=== PATIENT | female | born 1935 | race Caucasian/White ===

== ENCOUNTER 2017-01-10 10:45 | Day surgery (SDC) | payer MEDICARE, OTHER, MEDICAID ==
[2017-01-09 15:32] VITALS: BMI 29.2
[2017-01-10 12:16] LABS: #Basophils 0.1 thou/uL (0.0-0.2); #Eosinphils 0.3 thou/uL (0.0-0.7); #Lymphocytes 1.8 thou/uL (1.20-3.40); #Monocytes 0.5 thou/uL (0.11-0.59); #Neutrophils 3.9 thou/uL (1.40-6.50); %Basophils 1.1 % (0.0-1.0); %Eosinophils 4.7 % (0.0-10.0); %Lymphocytes 27.5 % (21.0-51.0); %Monocytes 7.9 % (0.0-10.0); Hematocrit 34.7 % (36.0-47.0); Mean Platelet Volume 7.8 fL (7.4-10.4); Red Blood Cell (RBC) Count 3.62 mill/uL (4.20-5.40); White Blood Cell (WBC) Count 6.6 thou/uL (4.8-10.8)
[2017-01-10 12:36] LABS: Anion Gap 14 mmol/L (10-20); BUN (Urea Nitrogen) 24 mg/dL (9.8-20.1); Calc. Creatinine Clearance 14 mL/min (70-130); Calcium 10.2 mg/dL (7.8-10.44); Carbon Dioxide 20 mmol/L (23-31); Chloride 111 mmol/L (98-107); Estimated GFR-MDRD 11
[2017-01-10] MEDS ORDERED: Lidocaine 1% w/Epinephrine 1:200K 30 ML VIAL ONE (13:29)
[2017-01-10] MEDS ORDERED: Fentanyl 100 MCG/2 ML VIAL ONE ×3 (13:41→15:25)
[2017-01-10] MEDS ORDERED: Promethazine HCl 25 MG/ML VIAL ONE (13:41)
[2017-01-10] MEDS ORDERED: Lidocaine 1% PF 5 ML VIAL ONE (14:30)
[2017-01-10] MEDS ORDERED: Bupivacaine/Epinephrine 0.25% 30 ML VIAL ONE (14:34)
--- NOTE | 2017-02-06 18:47 | OP ---
PREOPERATIVE DIAGNOSIS: Oral squamous lesion. POSTOPERATIVE DIAGNOSIS: Oral squamous lesion, squamous metaplasia of the hard callus. PROCEDURE PERFORMED: Microsuspension laryngoscopy with biopsy of oral lesion. PROCEDURE IN DETAIL: After consent was obtained, the patient was identified, brought to the operati ng room and placed on the table in supine position. General endotracheal anesthesia was obtained. The patient was positioned for surgery. The patient with systematic evaluation of oropharynx, no le tanmay was identified other than that of the hard palate which seemed to extend up in the anterior par t of the hard palate to the gum region and floor of the nose. There seemed to be abscess type cavit y from which biopsies were obtained. The bone also seemed to be involved. This involved predominan tly the anterior third of the hard palate and involved the ridgeline of the gum. The specimens and cultures were obtained. The patient was awakened, extubated, and taken to the recovery room and rem ained in stable condition prior to discharge home.
== END 2017-01-10 16:40 | disposition home or self-care (01) ==
LOC: SDC 10:45
PROVIDERS: ATTEND Specialist
PROC: 0CB Mouth and Throat, Excision (ICD-10-PCS; principal; 2017-01-10)
DX: K13.79 Other lesions of oral mucosa (principal); E78.5 Hyperlipidemia, unspecified; J44.9 Chronic obstructive pulmonary disease, unspecified; I13.0 Hypertensive heart and chronic kidney disease with heart failure and stage 1 through stage 4 chronic kidney disease, or unspecified chronic kidney disease; N18.9 Chronic kidney disease, unspecified; I50.9 Heart failure, unspecified; F32.9 Major depressive disorder, single episode, unspecified; N25.81 Secondary hyperparathyroidism of renal origin; K21.9 Gastro-esophageal reflux disease without esophagitis; R31.9 Hematuria, unspecified; M19.90 Unspecified osteoarthritis, unspecified site; M48.00 Spinal stenosis, site unspecified; E66.9 Obesity, unspecified; Z68.29 Body mass index [BMI] 29.0-29.9, adult; Z90.710 Acquired absence of both cervix and uterus; Z98.890 Other specified postprocedural states; Z96.653 Presence of artificial knee joint, bilateral; Z82.49 Family history of ischemic heart disease and other diseases of the circulatory system; Z79.899 Other long term (current) drug therapy
CPT/HCPCS: 80048; 85025; 87070; 87205; 88304; 88305; 96374; J2001; J2550; J3010

== ENCOUNTER 2017-02-19 12:46 | Outpatient (CLI) | payer MEDICARE, OTHER, MEDICAID ==
--- NOTE | 2017-02-19 17:55 | PET ---
NUCLEAR MEDICINE FDG PET CT: (Positron Emission Tomography) HISTORY: 86-year-old female with head/neck cancer, cancer of the hard palate. COMPARISON: None. TECHNIQUE: IV injection F-18 Fluorodeoxyglucose (FDG) dose: 10.0 mCi PET and attenuation-correction CT performed from vertex of skull to proximal thighs. FINDINGS: SUV (standard uptake value) numbers given are maximum SUV's: There is a soft tissue mass destroying the bone at the left anterior maxilla, including hard palate and alveolar ridge. This is very FDG avid, with SUV of 9.1. In the contralateral right retropharyngeal space at the C1 level, the region of the right longus Col li/longus capitus muscle appears asymmetrically mildly enlarged compared to the contralateral left s [place]. This is also very FDG avid, with SUV of 9.3. No other abnormally FDG avid lesion in the rest of the neck, chest, abdomen, or pelvis. IMPRESSION: 1. 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 2. FDG avid lesion in the right upper retropharyngeal space. 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 The other, much less likely possibility would be a second primary neoplasm. ISIDRO Hooker POS: IAN
== END 2017-02-19 12:47 | disposition home or self-care (01) ==
LOC: PET 12:46
PROVIDERS: ATTEND Radiology Radiation Oncology
DX: C05.0 Malignant neoplasm of hard palate (principal); J39.2 Other diseases of pharynx
CPT/HCPCS: 78815; A9552

== ENCOUNTER 2018-09-23 00:34 | Inpatient (IN) | payer MEDICARE, MEDICAID ==
[2018-09-23] MEDS ORDERED: Acetaminophen 325 MG TAB PO PRN (04:03)
[2018-09-23] MEDS ORDERED: Ondansetron PF 4 MG/2 ML Vial IVP PRN (04:03)
[2018-09-23] MEDS ORDERED: Ondansetron ODT 4 MG TAB PO PRN (04:03)
[2018-09-23] MEDS ORDERED: Acetaminophen 325 MG TAB ONE (04:52)
[2018-09-23] MEDS ORDERED: Ondansetron ODT 4 MG TAB ONE (04:57)
--- NOTE | 2018-09-23 06:00 | HP ---
PRIMARY CARE DOCTOR: TAM Rivera. CODE STATUS: DNR/DNI as stated by patient. TIME OF EVALUATION: 4 a.m. CHIEF COMPLAINT: Shortness of breath. HISTORY OF PRESENT ILLNESS: This is an 82-year-old female patient with past medical history of congestive heart failure, COPD, hypertension, kidney disease stage 5, has been offered hemodialysis in the past by she has refused to get it, came to the hospital after having severe gradually worsening shortness of breath with no clear triggers, no alleviating factors, associated with greenish sputum and cough. The symptoms have been present for the past couple of days. Symptoms started suddenly. REVIEW OF SYSTEMS: CONSTITUTIONAL: No fever, chills, or generalized weakness. RESPIRATORY: The patient has cough, sputum production, or shortness of breath. CARDIOVASCULAR: No chest pain or palpitation. GASTROINTESTINAL: No nausea. No vomiting, diarrhea, or abdominal pain. YARD JACKER: No dizziness, headache, or feeling lightheaded. GENITOURINARY: No burning on urination. EXTREMITIES: Bilateral leg swelling. All other systems were reviewed and negative except for the findings mentioned above. PAST MEDICAL HISTORY: As mentioned in the HPI. PAST SURGICAL HISTORY: Bilateral knee and back surgery, carpal tunnel bilateral, surgical history of hysterectomy, cataract surgery bilaterally, left rotator cuff repair. PSYCHIATRIC HISTORY1: No previous psych history. SOCIAL HISTORY: The patient is a former tobacco user. Smokes cigarettes more than 10 years ago. FAMILY HISTORY: Not significant. KNOWN ALLERGIES: No known drug allergies. REPORTED MEDICATIONS: 1. Nexium. 2. Alprazolam. 3. Tramadol. 4. Metoprolol. PHYSICAL EXAMINATION: VITAL SIGNS: On presentation; blood pressure of 150/66 with heart rate 62, respiratory rate was 16, temperature 97.8, pain was 0/10, oxygen saturation 98% on room air. GENERAL APPEARANCE: The patient is alert, oriented, not in acute distress. HEENT: Eyes, normal conjunctivae. Moist oral mucosa. Anicteric. No JVD. RESPIRATORY: Bilateral air entry is decreased, bilateral rales. The patient has wheezing, symmetric expansion. CARDIOVASCULAR: Normal rate, regular rhythm. No murmurs. No gallops. Bilateral leg edema. ABDOMEN: Soft. Normal bowel sounds. MUSCULOSKELETAL: Baseline range of motion and strength. No tenderness. SKIN: Warm and intact. No pallor. No rash. No redness. Peripheral pulses are present. Capillary refill seems to be intact. NEUROLOGIC: No evidence of any new focal weakness. Baseline speech. Cranial nerves seems to be intact. PSYCH: The patient is in good mood. No anxiety. Optimal judgment. IMAGING DATA: EKG was reviewed. The patient has normal sinus rhythm with sinus arrhythmia, ventricular rate 60, PA 134, QRS 82, QT corrected 462. Chest x-ray was reviewed. The patient has small bilateral pleural effusion due to pulmonary edema. LABORATORY DATA: Labs were reviewed. The patient's white count 6.4, hemoglobin 8.2, platelet count 285. Chemistry; sodium 143, potassium 4.5, chloride 116, carbon dioxide 14, anion gap 18, BUN 52, creatinine 8.5, GFR 4, glucose 102, calcium 8.9 LFTs were negative. ASSESSMENT AND PLAN: The patient will be placed in the hospital with following medical problems; 1. Acute exacerbation of congestive heart failure. Place the patient on diuresis. We will reconcile home medications. 2. History of chronic obstructive pulmonary disease, possible chronic obstructive pulmonary disease exacerbation. Given increase in greenish sputum production, we will place the patient on antibiotics and nebulizers. Job ID: [id number]
[2018-09-23 07:45] LABS: Troponin I 0.056 ng/mL (< 0.028)
[2018-09-23] MEDS ORDERED: Levofloxacin 500 mg/D5W 100 ml Premix Bag ONE (08:13)
[2018-09-23 11:20] VITALS: BMI 24.7
[2018-09-23] MEDS ORDERED: hydrALAZINE 20 MG/ML VIAL ONE (12:03)
[2018-09-23] MEDS: hydrALAZINE 20 MG/ML VIAL SLOW IVP PRN (12:14)
[2018-09-23] MEDS: Heparin 5,000 UNITS/ML VIAL SC SCH ×3 (12:14→21:41)
[2018-09-23] MEDS ORDERED: Metoprolol Tartrate 50 MG TAB PO SCH (12:15)
--- NOTE | 2018-09-23 12:38 | CON ---
DATE OF CONSULTATION: 09/23/2018 HISTORY OF PRESENT ILLNESS: Ms. 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 She was found to be in CHF. Her last creatinine back in 2014 was noted at 3.34 with GFR 14 mL/minute. Over time, this has progressed. I had a discussion with the last visit about dialysis. The patient is uncertain if she wants to proceed with dialysis. I will get in touch with the daughter. We are now following her up for chronic renal failure. Her GFR is less than 10 mL/minute. REVIEW OF SYSTEMS: Positive for shortness of breath. No chest pain. No syncopal episode. Appetite fair. Energy level is fair. No headache. No diplopia. No sore throat. No syncopal episode. No gross hematuria. No dysuria. No urinary frequency. Positive for leg swelling. 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 She has a history of depression, chronic pain, GERD, anxiety. History of CHF and COPD. PAST SURGICAL HISTORY: Status post bilateral knee and back surgery, status post cataract surgery, status post left rotator cuff repair, status post hysterectomy, status post bilateral carpal tunnel surgery. SOCIAL HISTORY: The patient used to be smoking tobacco as well as cigarettes. She lives in [place], lives with her daughter. Sedentary lifestyle. No IV drug abuse. Currently, no alcohol. FAMILY HISTORY: No family history of ESRD. ALLERGIES: NONE. TRAUMA: None. IMMUNIZATION: Up-to-date. HOSPITALIZATIONS: Please see past medical history. PHYSICAL EXAMINATION: VITAL SIGNS: Blood pressure 150/66, heart rate 62, respiratory rate 16, temperature 97.8, and pulse ox 98% on room air. GENERAL: She is awake, alert, comfortable, not in overt distress. SKIN: Adequate turgor. HEENT: Slightly pale conjunctivae. Anicteric sclerae. NECK: No neck mass. No carotid bruits. No JVD. CHEST: No deformities. LUNGS: Decreased breath sounds. HEART: Normal sinus rhythm. No murmur, no gallops, no rubs. ABDOMEN: Globular, soft, nontender. No masses. EXTREMITIES: Positive for edema. NEUROLOGICAL: Awake and oriented to 3 spheres. Moving all extremities. No tremors. No asterixis. LABORATORY DATA: Laboratories of September 22, 2018, white count 6.4, hemoglobin 8.2. Sodium 143, potassium 4.5, chloride 116, carbon dioxide 14, BUN 52, creatinine 8.5, GFR 4 mL/minute, glucose 102, calcium 8.9. IMAGING STUDIES: Chest x-ray showed CHF. MEDICATIONS: The patient is on, 1. Tramadol 50 mg p.o. b.i.d. 2. Metoprolol tartrate 50 mg b.i.d. 3. Lorazepam 0.5 mg p.o. b.i.d. 4. Atrovent oral inhaler p.r.n. 5. Nexium 40 mg q.a.m. 6. Clindamycin 300 mg q.8. 7. DuoNeb q.6 hours. 8. Xanax 0.5 mg p.o. t.i.d. Current medications include Levaquin 500 mg q.24 hours, heparin 5000 units subcu t.i.d. ASSESSMENT/PLAN: 1. 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 Renal function in the last 4 years has worsened from a GFR of 14 to a most recent GFR of 4 mL/minute. I did discuss with the patient about dialysis. She seems unsure of what to do. I left a message for her daughter to call me. Again, the option of dialysis will be given today, the patient can choose not to dialyze and we can consult palliative care with her. If she decides to do dialysis, we will initiate dialysis at this hospital. 2. Congestive heart failure. Agree with IV diuresis. Optimize neb treatment with this patient. 3. Borderline. 4. Anemia. Start Epogen and iron supplementation. Thank you for the consult. We will continue to follow. Job ID: [id number]
--- NOTE | 2018-09-23 13:19 | PDOC.PN ---
- Subjective Encounter Start Date: 09/23/18 Encounter Start Time: 13:00 Subjective: f/u for volume overload likely mediated by ESRD. Pt does not want -: to start HD and is considering hospice. - Objective Resuscitation Status - Order Detail: 09/23/18 04:03 Resuscitation Status Routine Resuscitation Status: DNAR: NO Resuscitation Discussed with: as stated by pt MAR Reviewed: Yes Vital Signs & Weight: Vital Signs (12 hours) Temp Pulse Resp BP BP Pulse Ox 09/23/18 12:27 63 09/23/18 12:14 63 173/74 H 09/23/18 10:52 63 20 09/23/18 09:00 97.0 F L 61 24 H 167/80 H 100 09/23/18 07:41 78 16 98 Weight Weight 149 lb Additional Labs: Laboratory Tests 09/22/18 09/22/18 09/22/18 22:30 22:30 22:30 WBC 6.4 Hgb 8.2 L Hct 26.4 L Plt Count 185 Sodium 143 Potassium 4.5 Chloride 116 H Carbon Dioxide 14 L BUN 52 H Creatinine 8.58 H Estimated GFR (MDRD) 4 Glucose 102 Calcium 8.9 B-Natriuretic Peptide 4409.7 H Radiology Reviewed by me: Yes (PCXR - bilat small pleural effusions) EKG Reviewed by me: Yes (Tele - sinus bradycardia) Phys Exam - Physical Examination Constitutional: NAD HEENT: PERRLA, sclera anicteric, oral pharynx no lesions Neck: no nodes, no JVD, supple, full ROM diminished in bases Respiratory: no wheezing S1, S2 Cardiovascular: RRR, no significant murmur, no rub, gallop Gastrointestinal: soft, non-tender, no distention, positive bowel sounds Musculoskeletal: pulses present, edema present Neurological: normal sensation, moves all 4 limbs Psychiatric: A&O x 3 Skin: normal turgor, cap refill <2 seconds Dx/Plan (1) Pulmonary edema Code(s): J81.1 - CHRONIC PULMONARY EDEMA Status: Acute Comment: Likely due to ESRD with volume overload, no current plans to pursue HD per patient and family, supportive mgmt (2) ESRD (end stage renal disease) Code(s): N18.6 - END STAGE RENAL DISEASE Status: Chronic Comment: No plans for HD per pt and family request, Hospice evaluation pending (3) Acute and chronic respiratory failure with hypoxia Code(s): J96.21 - ACUTE AND CHRONIC RESPIRATORY FAILURE WITH HYPOXIA Status: Acute Comment: Continue O2 supplementation continuously (4) HTN (hypertension) Code(s): I10 - ESSENTIAL (PRIMARY) HYPERTENSION Status: Chronic Qualifiers: Hypertension type: renovascular hypertension Qualified Code(s): I15.0 - Renovascular hypertension Comment: Resume home Metoprolol, add Hydralazine IV PRN (5) Anemia in CKD (chronic kidney disease) Code(s): N18.9 - CHRONIC KIDNEY DISEASE, UNSPECIFIED; D63.1 - ANEMIA IN CHRONIC KIDNEY DISEASE Status: Chronic Comment: Epo and FeSO4 replacement - Plan plan discussed w/ family, social science teacher, out of bed/ambulate, DVT proph w/SCDs Continue supportive mgmt -: Resume home Metoprolol 50mg BID -: Add Hydralazine IV prn -: Hospice consult for outpt planning -: AM lab: BMP, CBC * .
[2018-09-23] MEDS ORDERED: ALPRAZolam 0.25 MG TAB PO PRN (13:24)
--- NOTE | 2018-09-23 13:31 | PDOC.EVN ---
Event Note - Event Note Event Note: ACP Note: Spoke with daughter and patient regarding current dx of ESRD and pt does not want to pursue hemodialysis and accepts this diagnosis as a terminal phase of her known kidney disease. Family agrees with not pursuing any further aggressive intervention for renal failure and would like to transition to home hospice on discharge. Will continue with supportive mgmt currently and consult hospice for coordination of outpt care. Family and pt verbalize understanding and agreement. Total Time: 15min
--- NOTE | 2018-09-23 17:02 | EKG ---
Test Reason : Blood Pressure : / mmHG Vent. Rate : 069 BPM Atrial Rate : 069 BPM P-R Int : 128 ms QRS Dur : 086 ms QT Int : 396 ms P-R-T Axes : 008 013 100 degrees QTc Int : 424 ms Normal sinus rhythm Nonspecific ST and T wave abnormality Abnormal ECG When compared with ECG of 23-SEP-2018 01:10, (Unconfirmed) Nonspecific T wave abnormality, worse in Lateral leads Confirmed by DR. Brenda RODAS ([id number]) on 09/23/2018 5:02:08 PM Referred By: ROBIN Confirmed By:DR. Brenda RODAS
[2018-09-23] MEDS ORDERED: Prevnar 13-Val Conj/PF 0.5 ML SYRINGE IM ONE (21:00)
[2018-09-23] MEDS: Metoprolol Tartrate 50 MG TAB PO SCH (21:42)
[2018-09-23] MEDS: traMADol HCl 50 MG TAB PO PRN (21:42)
[2018-09-23] MEDS: ALPRAZolam 0.25 MG TAB PO SCH (21:44)
[2018-09-24] MEDS: hydrALAZINE 20 MG/ML VIAL SLOW IVP PRN (00:17)
[2018-09-24 09:20] LABS: #Basophils 0.1 thou/uL (0.0-0.2); #Eosinphils 0.3 thou/uL (0.0-0.7); #Lymphocytes 0.7 thou/uL (1.20-3.40); #Monocytes 0.4 thou/uL (0.11-0.59); #Neutrophils 4.2 thou/uL (1.40-6.50); %Basophils 1.2 % (0.0-1.0); %Eosinophils 4.8 % (0.0-10.0); %Lymphocytes 12.2 % (21.0-51.0); %Monocytes 7.6 % (0.0-10.0); %Neutrophils 74.3 % (42.0-75.0); Hemoglobin 8.4 g/dL (12.0-16.0); Mean Corpuscular HGB CONC 32.5 g/dL (32.0-36.0); Mean Corpuscular Hemoglobin 31.4 pg (27.0-31.0); Mean Corpuscular Volume 96.7 fL (78.0-98.0); Mean Platelet Volume 8.3 fL (7.4-10.4); Platelet Count 182 thou/uL (130-400); RBC Distribution Width 13.1 % (11.5-14.5); Red Blood Cell (RBC) Count 2.66 mill/uL (4.20-5.40); White Blood Cell (WBC) Count 5.6 thou/uL (4.8-10.8)
[2018-09-24 09:31] LABS: Anion Gap 15 mmol/L (10-20); BUN (Urea Nitrogen) 51 mg/dL (9.8-20.1); Calc. Creatinine Clearance 6 mL/min (70-130); Calcium 9.1 mg/dL (7.8-10.44); Carbon Dioxide 14 mmol/L (23-31); Chloride 115 mmol/L (98-107); Estimated GFR-MDRD 5; Glucose 91 mg/dL (83-110); Sodium 140 mmol/L (136-145)
[2018-09-24] MEDS: Heparin 5,000 UNITS/ML VIAL SC SCH ×3 (09:44→21:31)
[2018-09-24] MEDS: ALPRAZolam 0.25 MG TAB PO SCH ×2 (09:45→21:05)
[2018-09-24] MEDS: Metoprolol Tartrate 50 MG TAB PO SCH ×2 (09:49→21:25)
--- NOTE | 2018-09-24 16:36 | PDOC.PN ---
- Subjective Encounter Start Date: 09/24/18 Encounter Start Time: 16:20 Subjective: f/u for ESRD but pt not wanting to start HD and will transition to hospice -: at home. States some difficulty sleeping last pm. - Objective Resuscitation Status - Order Detail: 09/23/18 04:03 Resuscitation Status Routine Resuscitation Status: DNAR: NO Resuscitation Discussed with: as stated by pt MAR Reviewed: Yes Vital Signs & Weight: Vital Signs (12 hours) Temp Pulse Resp BP Pulse Ox 09/24/18 13:58 75 18 93 L 09/24/18 11:07 97.5 F L 65 22 H 149/74 H 95 09/24/18 10:16 70 18 94 L 09/24/18 09:45 97 09/24/18 07:39 97.7 F 81 20 108/65 97 09/24/18 06:36 65 20 99 Weight Weight 149 lb Most Recent Monitor Data Heart Rate from ECG 77 NIBP 134/72 NIBP BP-Mean 92 Respiration from ECG 16 SpO2 100 I&O: 09/23/18 09/24/18 09/25/18 06:59 06:59 06:59 Intake Total 100 Balance 100 Result Diagrams: 09/24/18 08:29 09/24/18 08:29 Additional Labs: Laboratory Tests 09/22/18 09/22/18 09/22/18 22:30 22:30 22:30 WBC 6.4 Hgb 8.2 L Hct 26.4 L Plt Count 185 Sodium 143 Potassium 4.5 Chloride 116 H Carbon Dioxide 14 L BUN 52 H Creatinine 8.58 H Estimated GFR (MDRD) 4 Glucose 102 Calcium 8.9 B-Natriuretic Peptide 4409.7 H Phys Exam - Physical Examination Constitutional: NAD HEENT: PERRLA, sclera anicteric, oral pharynx no lesions Neck: no nodes, no JVD, supple, full ROM diminished in bases, few rhonchi S1, S2 Cardiovascular: RRR, no significant murmur, no rub, gallop Gastrointestinal: soft, non-tender, no distention, positive bowel sounds Musculoskeletal: pulses present, edema present Neurological: normal sensation, moves all 4 limbs Psychiatric: A&O x 3 Skin: normal turgor, cap refill <2 seconds Dx/Plan (1) Pulmonary edema Code(s): J81.1 - CHRONIC PULMONARY EDEMA Status: Acute Comment: Likely due to ESRD with volume overload, no current plans to pursue HD per patient and family, supportive mgmt (2) ESRD (end stage renal disease) Code(s): N18.6 - END STAGE RENAL DISEASE Status: Chronic Comment: No plans for HD per pt and family request, Hospice evaluation in progress with plans to transition to hospice in 24h (3) Acute and chronic respiratory failure with hypoxia Code(s): J96.21 - ACUTE AND CHRONIC RESPIRATORY FAILURE WITH HYPOXIA Status: Acute Comment: Continue O2 supplementation continuously (4) HTN (hypertension) Code(s): I10 - ESSENTIAL (PRIMARY) HYPERTENSION Status: Chronic Qualifiers: Hypertension type: renovascular hypertension Qualified Code(s): I15.0 - Renovascular hypertension Comment: Resume home Metoprolol, add Hydralazine IV PRN (5) Anemia in CKD (chronic kidney disease) Code(s): N18.9 - CHRONIC KIDNEY DISEASE, UNSPECIFIED; D63.1 - ANEMIA IN CHRONIC KIDNEY DISEASE Status: Chronic Comment: Epo and FeSO4 replacement - Plan plan discussed w/ family, psychosocial rehabilitation counselor, out of bed/ambulate, DVT proph w/SCDs Stable overall -: Continue supportive mgmt -: D/C Levaquin -: Hospice evaluation in progress -: Likely home in am with hospice * .
--- NOTE | 2018-09-24 16:42 | PDOC.EVN ---
Event Note - Event Note Event Note: ACP note: Discussed further goals of care and finalization regarding decision to pursue hospice at discharge. Daughter present with pt and agrees to pursue home hospice in the next 24h. Code status remains DNAR per pt and daughter request. Total time: 10min
[2018-09-24] MEDS: traMADol HCl 50 MG TAB PO PRN (21:23)
[2018-09-25] MEDS: Metoprolol Tartrate 50 MG TAB PO SCH ×2 (08:06→20:46)
[2018-09-25] MEDS: ALPRAZolam 0.25 MG TAB PO SCH ×3 (08:06→20:46)
[2018-09-25] MEDS: Heparin 5,000 UNITS/ML VIAL SC SCH ×3 (08:07→20:46)
--- NOTE | 2018-09-25 12:27 | PDOC.PN ---
- Subjective Encounter Start Date: 09/25/18 Encounter Start Time: 12:25 Subjective: f/u for ESRD with conservative mgmt transitioning to hospice. - Objective Resuscitation Status - Order Detail: 09/23/18 04:03 Resuscitation Status Routine Resuscitation Status: DNAR: NO Resuscitation Discussed with: as stated by pt MAR Reviewed: Yes Vital Signs & Weight: Vital Signs (12 hours) Temp Pulse Resp BP Pulse Ox 09/25/18 10:35 70 16 98 09/25/18 08:00 95 09/25/18 07:19 98.1 F 72 20 167/75 H 95 09/25/18 07:02 68 16 99 Weight Weight 149 lb Most Recent Monitor Data Heart Rate from ECG 77 NIBP 134/72 NIBP BP-Mean 92 Respiration from ECG 16 SpO2 100 I&O: 09/24/18 09/25/18 09/26/18 06:59 06:59 06:59 Intake Total 100 850 Balance 100 850 Result Diagrams: 09/24/18 08:29 09/24/18 08:29 Additional Labs: Laboratory Tests 09/22/18 09/22/18 09/22/18 22:30 22:30 22:30 WBC 6.4 Hgb 8.2 L Hct 26.4 L Plt Count 185 Sodium 143 Potassium 4.5 Chloride 116 H Carbon Dioxide 14 L BUN 52 H Creatinine 8.58 H Estimated GFR (MDRD) 4 Glucose 102 Calcium 8.9 B-Natriuretic Peptide 4409.7 H Phys Exam - Physical Examination Constitutional: NAD HEENT: PERRLA, sclera anicteric, oral pharynx no lesions Neck: no nodes, no JVD, supple, full ROM diminished in bases Respiratory: no wheezing, no rales, clear to auscultation bilateral S1, S2 Cardiovascular: RRR, no rub, gallop Gastrointestinal: soft, non-tender, no distention, positive bowel sounds Musculoskeletal: pulses present, edema present Neurological: normal sensation, moves all 4 limbs Psychiatric: A&O x 3 Skin: normal turgor, cap refill <2 seconds Dx/Plan (1) Pulmonary edema Code(s): J81.1 - CHRONIC PULMONARY EDEMA Status: Acute Comment: Likely due to ESRD with volume overload, no current plans to pursue HD per patient and family, supportive mgmt (2) ESRD (end stage renal disease) Code(s): N18.6 - END STAGE RENAL DISEASE Status: Chronic Comment: No plans for HD per pt and family request, Hospice evaluation in progress with plans to transition to hospice in 24h (3) Acute and chronic respiratory failure with hypoxia Code(s): J96.21 - ACUTE AND CHRONIC RESPIRATORY FAILURE WITH HYPOXIA Status: Acute Comment: Continue O2 supplementation continuously (4) HTN (hypertension) Code(s): I10 - ESSENTIAL (PRIMARY) HYPERTENSION Status: Chronic Qualifiers: Hypertension type: renovascular hypertension Qualified Code(s): I15.0 - Renovascular hypertension Comment: Resume home Metoprolol, add Hydralazine IV PRN (5) Anemia in CKD (chronic kidney disease) Code(s): N18.9 - CHRONIC KIDNEY DISEASE, UNSPECIFIED; D63.1 - ANEMIA IN CHRONIC KIDNEY DISEASE Status: Chronic Comment: Epo and FeSO4 replacement - Plan plan discussed w/ family, psych social worker, DVT proph w/SCDs Stable currently -: CM assisting with coordination for outpt hospice -: Xanax for anxiety and HS -: Family updated regarding hospice arrangements -: D/C home with hospice in am 09/26/18 * .
--- NOTE | 2018-09-25 13:34 | PQF ---
CLINICAL DOCUMENTATION IMPROVEMENT CLARIFICATION FORM: ICD-10 Updated PLEASE DO AN ADDENDUM TO THE PROGRESS NOTE WITH ANY DOCUMENTATION UPDATES OR ADDITIONS AND CARRY THROUGH TO DC SUMMARY. THANK YOU. DATE: 09/25/2018 ATTN: Dr. Thomas Please exercise your independent, professional judgment in responding to the clarification form. Clinical indicators are provided on the bottom of this form for your review Please check appropriate box(s): HEART FAILURE: A. TYPE: [ ] Systolic / HFrEF [ ] Diastolic / HFpEF [ ] Combined Systolic / Diastolic [ x ] Other diagnosis __ESRD with volume overload [ ] Unable to determine In addition, please specify: Present on Admission (POA): [ x ] Yes [ ] No [ ] Unable to determine For continuity of documentation, please document condition throughout progress notes and discharge summary. Thank You. CLINICAL INDICATORS - SIGNS / SYMPTOMS / LABS H&P 09/23: CC: Shortness of breath. Chest x-ray. The pt has small bilateral pleural effusion due to pulmonary edema. Acute exacerbation of congestive heart failure. pn 09/23: Pulmonary edema. Chronic pulmonary edema. Acute. Likely due to ESRD with volume overload. no current plans to pursue HD RISKS: H&P: PMH of CHF, COPD, hypertension, kidney disease stage 5. TREATMENT: MAR: 09/23 Hydralazine 10 mg slow IVP Q4 h prn Thank you, Stacey (This form is maintained as a part of the permanent medical record) 2014 [email or web address] All Rights Reserved Stacey Onofre RN, BSN [email or web address] Office: [phone] [facility]
[2018-09-26] MEDS: Heparin 5,000 UNITS/ML VIAL SC SCH (07:37)
[2018-09-26] MEDS: Metoprolol Tartrate 50 MG TAB PO SCH (07:38)
[2018-09-26] MEDS: ALPRAZolam 0.25 MG TAB PO SCH (07:41)
[2018-09-26 08:18] VITALS: BP 162/75; TEMP 97.6
--- NOTE | 2018-09-26 09:50 | DIS ---
DATE OF ADMISSION: 09/23/2018 DATE OF DISCHARGE: 09/26/2018 DISCHARGE DIAGNOSES: 1. End-stage renal disease. 2. Pulmonary edema secondarily to end-stage renal disease. 3. Acute on chronic hypoxic respiratory failure. 4. Hypertension, stable. 5. Anemia in chronic kidney disease. CONSULTATIONS: Dr. Fischer with Nephrology Service. PERTINENT LABORATORY AND X-RAY FINDINGS: Creatinine ranged between 8.40 to 8.58, estimated GFR 5. CBC showed a hemoglobin 8.4, hematocrit 25.8. Portable chest x-ray dated 09/22/2018 showed bilateral pleural effusions and pulmonary edema. HOSPITAL COURSE: The patient was initially admitted after initially presenting with increased shortness of breath in the context of known chronic kidney disease, stage 5. The patient underwent metabolic screening showing worsening renal failure with end-stage renal disease. The patient was given the option of considering initiation of hemodialysis versus conservative management and palliative care. The patient opted to not pursue hemodialysis and chose to seek a palliative and hospice care at home. The patient did receive IV Lasix, however, stabilized with oxygen supplementation and general supportive management. Discussions were had with Hospice regarding home care and arrangements and coordination for outpatient hospice care have been confirmed with [facility]. I have examined the patient at the time of discharge and discussed followup instructions. The patient and family verbalized understanding and in agreement and ready for discharge on 09/26/2018. DISCHARGE MEDICATIONS: 1. Alprazolam 0.25 mg p.o. daily and at bedtime. 2. Nexium 40 mg p.o. q.a.m. 3. Combivent metered dose inhaler 1 puff inhaled q.i.d. 4. Metoprolol tartrate 50 mg p.o. b.i.d. 5. Tramadol 50 mg 2 tablets p.o. b.i.d. p.r.n. pain. FOLLOWUP: The patient may follow up with her primary care provider, Yoko Goode, after discharge. SPECIAL INSTRUCTIONS: The patient will receive hospice care through [facility] on discharge. ACTIVITY: Ad turner. DIET: Regular as tolerated. CODE STATUS: Do not attempt resuscitation. DISPOSITION: Home with hospice on 09/26/2018. Job ID: [id number]
== END 2018-09-26 10:20 | disposition hospice, home (50) | DRG 291 ==
LOC: ERS 00:34 → ERHOLD 03:45 → IMCU/EMU 09:15 → T4-A 09-24 00:52
PROVIDERS: ADMIT Hospitalist; ATTEND Hospitalist
DX: I13.2 Hypertensive heart and chronic kidney disease with heart failure and with stage 5 chronic kidney disease, or end stage renal disease (principal); J96.21 Acute and chronic respiratory failure with hypoxia; N25.81 Secondary hyperparathyroidism of renal origin; E87.70 Fluid overload, unspecified; Z66 Do not resuscitate; F41.9 Anxiety disorder, unspecified; F32.9 Major depressive disorder, single episode, unspecified; K21.9 Gastro-esophageal reflux disease without esophagitis; D63.1 Anemia in chronic kidney disease; J44.9 Chronic obstructive pulmonary disease, unspecified; I50.9 Heart failure, unspecified; Z88.8 Allergy status to other drugs, medicaments and biological substances; Z87.891 Personal history of nicotine dependence; Z88.5 Allergy status to narcotic agent; Z90.710 Acquired absence of both cervix and uterus; Z79.899 Other long term (current) drug therapy
CPT/HCPCS: 36415; 80048; 84484; 85025; 90471; 90670; 93005; 93010; 94640; 94760; 96365; G0009; J0360; J1644; J1956; J7620; Q0162